=== PATIENT | male | born 1995 | race Caucasian/White ===

== ENCOUNTER 2017-05-21 22:47 | Emergency (ER) | payer MEDICAID, OTHER ==
[~2017-05-21] VITALS: Ht 167.6 cm; Wt 59.0 kg
[2017-05-21 22:50] VITALS: BP 138/77
[2017-05-21] MEDS ORDERED: ALBU17IN INH (22:57)
[2017-05-21] MEDS ORDERED: IBUP1TAB6 GT (22:57)
[2017-05-21] MEDS ORDERED: CLEO300C2 PO (23:25)
[2017-05-21] MEDS ORDERED: MECL1CHW2 PO (23:25)
[2017-05-21] MEDS ORDERED: FLON1SPR (23:25)
[2017-05-21] MEDS ORDERED: ZOFR4TAB3 PO (23:25)
[2017-05-21] MEDS ORDERED: IBUPROFEN 800 MG TAB PO ONE (23:30)
[2017-05-21] MEDS ORDERED: ONDANSETRON 4 MG ORAL DISINTEGRATING TAB (S0181) PO ONE (23:30)
[2017-05-21] MEDS ORDERED: MECLIZINE 25 MG TABLET PO ONE (23:30)
[2017-05-21] MEDS ORDERED: ACETAMINOPHEN 325 MG TAB PO ONE (23:30)
--- NOTE | 2017-05-22 07:32 | ECGEPIP ---
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
== END 2017-05-22 02:12 | disposition home or self-care (01) ==
LOC: M ED 22:47
DX: J01.90 Acute sinusitis, unspecified (principal); R42 Dizziness and giddiness; R50.9 Fever, unspecified; R00.0 Tachycardia, unspecified; R53.83 Other fatigue; J45.909 Unspecified asthma, uncomplicated; Z79.899 Other long term (current) drug therapy; Z88.0 Allergy status to penicillin

== ENCOUNTER 2017-05-22 12:45 | Emergency (ER) | payer MEDICAID, OTHER ==
[~2017-05-22] VITALS: Ht 167.6 cm; Wt 59.0 kg
[2017-05-22 12:45] VITALS: BP 123/56
[~2017-05-22 12:45] MED LIST: ALBU17IN INH; CLEO300C2 PO; FLON1SPR; IBUP1TAB6 GT; MECL1CHW2 PO; ZOFR4TAB3 PO
[2017-05-22] MEDS ORDERED: ACETAMINOPHEN 325 MG TAB PO ONE (13:30)
== END 2017-05-22 13:40 | disposition home or self-care (01) ==
LOC: M ED 12:45
DX: R42 Dizziness and giddiness (principal); J01.90 Acute sinusitis, unspecified; J45.909 Unspecified asthma, uncomplicated; Z79.899 Other long term (current) drug therapy; Z88.0 Allergy status to penicillin